=== PATIENT | male | born 1990 | race Caucasian/White ===

== ENCOUNTER 2023-10-18 12:51 | Outpatient (AMB) | payer OTHER, SELFPAY ==
--- NOTE | 2023-10-18 12:56 | AM.OFFWIN_ITS ---
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 Reports light sensitivity but denies double vision or eye pain. H/o allergic rhinitis. PFSH Social History Patient Tobacco Use Status: Never used Tobacco Review of Systems Eyes Reports photophobia Physical Exam Vital Signs: Last Vital Signs Temp 97.7 F 10/18/23 13:23 Pulse 103 H 10/18/23 13:23 BP 116/72 10/18/23 13:23 Pulse Ox 98 10/18/23 13:23 Oxygen Delivery Method Room Air 10/18/23 13:23 BMI result Body Mass Index 37.7 Const General: comfortable and no acute distress Nutritional Appearance: overweight Orientation/consciousness: patient oriented x3 HEENT Head: Yes normocephalic Ears: external ears normal General nose exam: Normal external nose present Eyes Eyelids: Yes eyelids normal Conjunctivae: conjunctival abnormal (Redness and cloudy both eyes) bilateral and diffuse Pupils: Equal, round and reactive pupils present EOM: EOMs intact bilaterally Direct Ophthalmoscopy: photophobia Neuro General: patient oriented x3, gait normal and moves all extremities Cranial nerves: Yes Equal, round and reactive pupils present Psych Speech and movement: Normal speech and movement present Assessment & Plan Assessment & Plan (1) Acute atopic conjunctivitis: Code(s): H10.10 - Acute atopic conjunctivitis, unspecified eye Qualifiers: Laterality: bilateral Qualified Code(s): H10.13 - Acute atopic conjunctivitis, bilateral Plan: - Maintain a Good eye hygiene - Use the drops as directed - Wash hands with soap and water - RTC if no improvement. Medications: New ciprofloxacin HCl 0.3% put 1-2 drps in affected eye(s) every 2hr up to 8 times/day x2days; then 4 times/day x5days ophthalmic (eye) 10 mL 0RF H10.13 - Acute atopic conjunctivitis, bilateral Coding Level of Care Code New Pt Level 3 (33605) Diagnoses Acute atopic conjunctivitis of both eyes H10.13 Laterality: bilateral Time Spent (min) 15
[2023-10-18 13:23] VITALS: BP 116/72; PULSE 103; TEMP 36.5; O2SAT 98; BMI 37.7
== END 2023-10-18 14:01 | disposition home or self-care (01) ==
PROVIDERS: Visit Provider Nurse Practitioner Family
DX: H10.13 Acute atopic conjunctivitis, bilateral (principal)
CPT/HCPCS: 99203

== ENCOUNTER 2024-08-05 10:53 | Emergency (ER) | payer OTHER, SELFPAY ==
--- NOTE | ~2024-08-05 | CT_ITS ---
EXAMINATION: CT HEAD WITHOUT IV CONTRAST HISTORY: new onset seizure. TECHNIQUE: Unenhanced helical CT of the head was performed per standard departmental protocol. Coronal and sagittal reformats of the head were also evaluated. One or more of the following techniques was used for dose reduction: Automated exposure control, adjustment of the mA and/or kV according to patient size, use of iterative reconstruction technique. DLP: 936 mGy-cm COMPARISON: There are no prior studies for comparison. FINDINGS: BRAIN: The brain parenchyma is unremarkable. There is normal martinez/white differentiation. The ventricular system is normal in size and configuration. There is no mass effect or midline shift. No intra- or extra-axial fluid collections are identified. SINUSES: The visualized paranasal sinuses are clear. The mastoid air cells and middle ear cavities are well pneumatized. ORBITS: The visualized orbits are unremarkable. BONES/SOFT TISSUES: There is left parietal soft tissue swelling. There are multiple calcified sebaceous cysts of the scalp. The calvarium is intact. No suspicious lytic or sclerotic lesions. CT/CT head/brain wo IV con IMPRESSION: Left parietal soft tissue swelling. Otherwise unremarkable unenhanced head CT. Electronically signed by: Davis Moreno MD 08/05/2024 02:[address] [facility]
--- NOTE | ~2024-08-05 | XR_ITS ---
EXAMINATION: XR SHOULDER 2 OR MORE VIEWS LEFT HISTORY: pain COMPARISON: There are no prior studies available for comparison. FINDINGS: Three views of the left shoulder are submitted. Osseous mineralization is normal. There is a moderately displaced oblique fracture of the distal clavicle. No additional fracture is seen. There is no dislocation. The glenohumeral and acromioclavicular joint spaces are preserved. The soft tissues are unremarkable. XR/XR shoulder LT min 2V IMPRESSION: Moderately displaced oblique fracture of the distal clavicle. Electronically signed by: Davis Moreno MD 08/05/2024 01:12 PM [facility]
--- NOTE | 2024-08-05 11:47 | ED_ITS ---
HPI - Fall General Chief Complaint: General Medical Stated Complaint: dislocated l shoulder Time Seen by Provider: 08/05/24 15:45 Source: patient Mode of arrival: ambulatory Limitations: no limitations History of Present Illness ED Provider: LOBITO SON PA-C HPI Narrative: 33 yo male presents to the ED from home following ?seizure this morning. He reports waking up and taking a phone call from an [employer] around 0850 this morning. The next thing he knew, he woke up in his recliner around 0955. He was alert when he came to. He immediately noted left shoulder pain. Denies tongue laceration or bladder incontinence. He believes he may have tripped and fell. He is unsure of head strike. He reports consuming 2-4 beers daily. Last drink was yesterday. No need for eye postbed stitcher. Denies history of etoh withdrawal or withdrawal seizures. Denies hx of seizures in general. Denies headache, numbness or weakness, vision change or dizziness. Denies feeling as though he is withdrawing from alcohol at this time. Denies any ilicit substance use. Related Data Previous Rx's ?Medication ?Instructions ?Recorded ciprofloxacin HCl 0.3 % eye drops See Rx Instructions ophthalmic 10/18/23 (eye) .COMPLEX #10 mL tramadol 50 mg tablet 50 mg PO Q8H PRN pain (scale score 08/05/24 4-6) #7 tabs Allergies Allergy/AdvReac Type Severity Reaction Status Date / Time Penicillins [PENICILLINS] Allergy Unknown HIVES Verified 08/05/24 11:51 pennicillin Allergy Unknown Unknown Uncoded 10/18/23 13:31 Review of Systems 2 Review of Systems: Constitutional: No fever, chills, fatigue, night sweats, weight changes ENT/Mouth: No ear pain, hearing loss, nasal congestion, sinus pain, rhinorrhea, sore throat Eyes: No eye pain, swelling, redness, vision changes, discharge Cardio: No chest pain, palpitations, ARRIETA, orthopnea, peripheral edema Pulm: No SOB, cough, sputum, wheezing, dyspnea, hemoptysis GI: No nausea, vomiting, hematemesis, abdominal pain, diarrhea, constipation, hematochezia, melena : No irregular bleeding, dysuria, frequency, urgency, hesitancy, hematuria, flank pain, urinary flow changes, urinary incontinence or retention MSK: No back pain, neck pain, joint pain, myalgias, +L shoulder pain Skin: No lesions, rashes Neuro: No weakness, numbness, paresthesias, LOC, dizziness, headache Psych: No anxiety/panic, depression, SI/HI, AH/VH All other systems reviewed and are negative. [facility] Past Medical History Attestation statement: The following information was validated with the patient. Source: old records reviewed and nursing notes reviewed Social History Social History Patient Tobacco Use Status: Never used Tobacco Advance Directives: No Advance Directives Information Provided: No Physical Exam 2 Vital Signs: Vital Signs: Last Vital Signs Temp 98 F 08/05/24 16:10 Pulse 102 H 08/05/24 16:10 Resp 20 08/05/24 16:10 BP 153/84 H 08/05/24 16:10 Pulse Ox 98 08/05/24 16:10 O2 Del Method Room Air 08/05/24 16:10 BMI result Body Mass Index 41.5 hypertensive, tachycardic General: Well appearing, in no acute distress. Skin: Warm, dry, intact. No rashes or lesions. Head: small palpable hematoma to left parietal region, no palpable skull fx. no battles sign. no raccoon eyes. EENT: PERRLA. EOM intact. Moist mucous membranes.?no tongue laceration Neck: no c spine tenderness or step off Cardiac: Chest wall symmetric. tachycardic, regular rhythm Lungs: Normal respiratory effort without accessory muscle use. CTA bilaterally Abdomen: Soft, non-tender, non-distended Back: No midline spinous or paraspinal tenderness. No step off deformity. Ext: ttp along anterior aspect of left shoulder extending over clavicle, no obvious palpable deformity or crepitus. FROM intact to left shoulder w/ pain on extension and abduction. holding LUE in adduction. 2+ radial/ulnar pulse intact. Neuro: AOx3. Normal speech. no tremor, no tongue fasciculation, no asterixis. Ambulating with steady gait. Psych: Appropriate mood and affect. Responds appropriately to questions. Course Course Course Narrative: 33 yo male no PMH not on thinners states he woke up today everything was fine states he was on the phone with [employer] and the next thing he knew he woke up in his recliner at 955am. He states he thinks he lost about 30 minutes of time. He knew where he was when he was at home. He has never had this happen before. He only has L shoulder pain. He drinks heavy but no need for eye postbed stitcher and no past withdrawal seizures. He denies headache, numbness or weakness. At this time unclear if he had a seizure given the lost track of time would not suspect syncope given he was sitting in the recliner when he woke up. Labs, EKG, L shoulder xray. this is a RAPID medical screening exam the rest of the history and physical exam is to be done by the main provider. Reevaluation(s) Reevaluation #1: CBC with leukocytosis to 12.9 with left shift. No anemia. H&H stable. Chemistry without acute electrolyte abnormality requiring intervention. No ASHLEE. Liver function elevated, likely secondary to ETOH abuse. Trop WNL. EKG showing sinus tachycardia at a rate of 116 beats per minute, no acute ischemic changes or ST elevations. ACS unlikely. Lipase WNL. Pancreatitis unlikely. ethanol undetectable. ua w/o infection. > shoulder x-ray showing moderately displaced oblique fracture of the distal clavicle. CT head/brain showing left parietal soft tissue swelling. No intracranial bleed or skull fracture. > discussed all results with patient. He has been placed in a sling for clavicle fracture. CMS intact distally. At this time it is unclear if he had a seizure versus syncopal episode given that he woke up in his recliner. He does not appear to be in alcohol withdrawal. He has no history of withdrawal seizures or DT. no hx of seizures. > he is well appearing. vitals have stablized. his father is at bedside with him and has no concerns. discussed seizure protocol. he will need to follow up with neurology - referral provided. he is not interested in detox at this time. advised to not make any drastic changes to his etoh consumption. advise to f/u w/ ortho for clavicle fx. Patient has remained stable throughout ED visit today. Discussed worrisome signs and symptoms and when to return to the ED. All questions answered at this time. Patient is agreeable with disposition and stable for discharge. Procedures Orthopedic Splinting/Casting Injury #1: Side: left Upper Extremity Injury Location: clavicle Upper Extremity Immobilizer: sling/shoulder immobilizer Medical Decision Making Medical Decision Making [facility] Narrative: 33 yo male presents to the ED from home following ?seizure this morning. exam significant for ttp along anterior aspect of left shoulder extending over clavicle, no obvious palpable deformity or crepitus. FROM intact to left shoulder w/ pain on extension and abduction. holding LUE in adduction. 2+ radial/ulnar pulse intact. small palpable hematoma to left parietal region, no palpable skull fx. no battles sign. no raccoon eyes. Differential diagnosis includes anemia, electrolyte abnormality, etoh abuse, etoh withdrawal seizure, seizure, scalp hematoma v skull fracture, intracranial bleed v mass, shoulder/clavicle fracture v disclocation, contusion, msk sprain/ strain Labs, imaging, ekg, UA obtained prior to my assumption of care. plan to review and re-evaluate. Differential Diagnosis Differential Diagnoses: The differential diagnosis associated with the presentation includes as above. Admission/Observation not indicated. Lab Data [facility] Lab Attestation statement: I reviewed the patient's lab results. as above. 08/05/24 13:41 08/05/24 13:41 Labs: Lab Results 08/05/24 08/05/24 Range/Units 13:41 15:43 WBC 12.9 H (4.8-10.8) X10*3/uL RBC 4.75 (4.60-5.80) X10*6/uL Hgb 15.8 (14.0-18.0) g/dl Hct 44.7 (42.0-52.0) % MCV 94.1 (80.0-98.0) fL MCH 33.3 H (27.0-33.0) pg MCHC 35.3 (31.0-36.0) g/dl RDW 12.3 (11.0-16.0) % Plt Count 223 (160-400) X10*3/uL MPV 9.1 L (9.4-12.4) fL Immature Gran % (Auto) 0.5 H (0.0-0.4) % Neut % (Auto) 81.9 H (45-73) % Lymph % (Auto) 10.5 L (20-40) % Kinney % (Auto) 6.2 (2-11) % Eos % (Auto) 0.5 (0-4) % Baso % (Auto) 0.4 (0-2) % Lymph # (Auto) 1.4 (1.2-4.9) X10*3/uL Kinney # (Auto) 0.8 (0.1-1.2) X10*3/uL Eos # (Auto) 0.1 (0.0-0.4) X10*3/uL Baso # (Auto) 0.1 (0.0-0.2) X10*3/uL Abs Immat Gran (auto) 0.07 H (0.00-0.03) X10*3/uL Absolute Neuts (auto) 10.5 H (2.0-8.3) x10*3/uL Absolute Nucleated RBC 0.000 (0.0-0.012) X10*3/uL Nucleated RBC % (auto) 0.0 (0.0-0.2) /100WBC Sodium 142 (135-145) mmol/L Potassium 4.8 (3.3-5.1) mmol/L Chloride 109 H (96-108) mmol/L Carbon Dioxide 25 (22-29) mmol/L Anion Gap 13 (12-20) BUN 8 L (9-16) mg/dL Creatinine 0.89 (0.5-1.4) mg/dL Estim Creat Clear Calc 162.4 Estimated GFR > 60 Random Glucose 121 H (60-115) mg/dL Calcium 10.0 (8.4-10.2) mg/dL Magnesium 2.2 (1.6-2.6) mg/dL Total Bilirubin 0.6 (0.0-1.0) mg/dL Direct Bilirubin 0.3 (0.0-0.5) mg/dL AST 74 H (5-37) U/L ALT 158 H (0-40) U/L Alkaline Phosphatase 84 (39-117) U/L Troponin I High Sens 8.4 (<3.5-35.0) ng/L Total Protein 8.4 H (6.5-8.0) g/dL Albumin 4.3 (3.5-5.0) g/dL Lipase 25 (8-78) U/L Urine Color Yellow Urine Appearance Cloudy Urine pH 6.0 (5.0-9.0) Ur Specific Odd 1.015 (1.005-1.025) Urine Protein Negative (Neg-Trace) mg/dL Urine Glucose (UA) Negative (Negative) mg/dL Urine Ketones Negative (Negative) mg/dL Urine Blood Negative (Negative) Urine Nitrite Negative (Negative) Ur Leukocyte Esterase Negative (Negative) Ethyl Alcohol < 10 mg/dL Independent Interpretation I performed an independent interpretation of an: EKG, Plain X-Ray and CT Scan Interpretation: CT head w/o intracranial bleed XR left shoulder w/ distal clavicle fracture EKG showing sinus tachycardia at a rate of 116 beats per minute, no ST elevation or acute ischemic changes Radiology Impression Discussion of test interpretation with radiology: I have reviewed the radiologist's reading. Radiologist Impression: Procedure(s): CT head/brain wo IV con Accession Number(s): [id number] cc: Jody Landa DO; Physician,None ~ Report Number: [id number]: Total DLP = 936.00 mGy-cm EXAMINATION: CT HEAD WITHOUT IV CONTRAST HISTORY: new onset seizure. TECHNIQUE: Unenhanced helical CT of the head was performed per standard departmental protocol. Coronal and sagittal reformats of the head were also evaluated. One or more of the following techniques was used for dose reduction: Automated exposure control, adjustment of the mA and/or kV according to patient size, use of iterative reconstruction technique. DLP: 936 mGy-cm COMPARISON: There are no prior studies for comparison. FINDINGS: BRAIN: The brain parenchyma is unremarkable. There is normal martinez/white differentiation. The ventricular system is normal in size and configuration. There is no mass effect or midline shift. No intra- or extra-axial fluid collections are identified. SINUSES: The visualized paranasal sinuses are clear. The mastoid air cells and middle ear cavities are well pneumatized. ORBITS: The visualized orbits are unremarkable. BONES/SOFT TISSUES: There is left parietal soft tissue swelling. There are multiple calcified sebaceous cysts of the scalp. The calvarium is intact. No suspicious lytic or sclerotic lesions. CT/CT head/brain wo IV con IMPRESSION: Left parietal soft tissue swelling. Otherwise unremarkable unenhanced head CT. Electronically signed by: Davis Moreno MD 08/05/2024 02:36 PM EST RP Procedure(s): XR shoulder LT min 2V Accession Number(s): [id number] cc: Jody Landa DO; Physician,None ~ EXAMINATION: XR SHOULDER 2 OR MORE VIEWS LEFT HISTORY: pain COMPARISON: There are no prior studies available for comparison. FINDINGS: Three views of the left shoulder are submitted. Osseous mineralization is normal. There is a moderately displaced oblique fracture of the distal clavicle. No additional fracture is seen. There is no dislocation. The glenohumeral and acromioclavicular joint spaces are preserved. The soft tissues are unremarkable. XR/XR shoulder LT min 2V IMPRESSION: Moderately displaced oblique fracture of the distal clavicle. Electronically signed by: Davis Moreno MD 08/05/2024 01:12 PM EST RP External Record Review External record reviewed: Inpatient record Prescription Management I considered prescription management with: Pain Medication Chronic Conditions Patient?s care impacted by: Other (etoh abuse) Social Determinants Patient?s care significantly limited by Social Determinants of Health including: Alcoholism and drug addiction in family and Other Social Determinant of Health Critical Care Time Critical Care Time Critical Care Time: No Discharge Plan Discharge Clinical Impression: Clavicle fracture, Syncope Patient Disposition: Home, Self-Care Instructions: Clavicle Fracture (ED), Syncope (ED), Epilepsy (ED), Alcohol Withdrawal (ED) Additional Instructions: You were evaluated in the ED today following a syncopal episode. Your blood work/ ekg are reassuring. The CT scan of your head shows soft tissue swelling, no intracranial bleed or skull fracture. The xray of your left shoulder shows a fracture of your clavicle. I have placed you in a sling today. You need to keep this on until you follow up with your orthopedic doctor outpatient. You have been provided with a referral. Call them to establish care. They will not call you. I recommend you take 600mg ibuprofen every 6 hours or Tylenol 650mg every 6 hours as needed for pain. If needed, you can alternate these medications so that you take one medication every 3 hours. For example, at noon take ibuprofen, then at 3pm take Tylenol, then at 6pm take ibuprofen. I am sending tramadol for you to take for break through pain. Take this with caution as this is a controlled pain medication. It has addictive properties. Do not drink, drive or operate heavy machinery while taking this medication. You also need to follow up with neurologist. As we cannot definitively say you did or did not have a seizure today, the recommendation is to avoid driving for at least 6 months. You need to follow up with neurologist for further work up/ testing. Return with new or worsening symptoms. In the case of an emergency call 911. If you would like to cut down or stop your alcohol use please consider calling our outpatient Addiction Treatment office:? [facility] (M-F 9a-5p) [address] [place] [address] [address] ? If you experience seizures, vomiting blood, black stools, falls, severe headache, chest pain, fevers, trouble breathing, hallucinations or any other concerns you need to call 911 or seek immediate care. Please stay hydrated. Prescriptions: New tramadol 50 mg tablet 50 mg PO Q8H PRN (Reason: pain (scale score 4-6)) Qty: 7 0RF No Action ciprofloxacin HCl 0.3 % drops See Rx Instructions ophthalmic (eye) .COMPLEX Qty: 10 0RF Rx Instructions: put 1-2 drps in affected eye(s) every 2hr up to 8 times/day x2days; then 4 times/day x5days ophthalmic (eye) Referrals: [facility] Orthopedic Surgeons [Provider Group] - 3 days (left clavicle fracture) [facility] Neuro/Sleep [Provider Group] - 2 days (new onset seizure work up) Stand Alone Forms: Work/School Release Interventions: ED Discharge Assessment Last Done: 08/05/24 16:10 Discharge Date/Time: 08/05/24 16:11 Print Language: Burkinan
[2024-08-05 11:48] VITALS: BP 133/85; PULSE 120; RESP 16; TEMP 36.6; O2SAT 96; BMI 41.5
--- NOTE | 2024-08-05 11:52 | ECG_ITS ---
Test Reason : SYNCOPE Blood Pressure : */* mmHG Vent. Rate : 116 BPM Atrial Rate : 116 BPM P-R Int : 190 ms QRS Dur : 68 ms QT Int : 316 ms P-R-T Axes : 29 -17 -11 degrees QTcB Int : 439 ms Sinus tachycardia Right atrial enlargement Junctional ST depression, probably normal Borderline ECG No previous ECGs available Referred By: Jody Landa Electronically Signed By:
[2024-08-05 13:46] LABS: MANUAL DIFF FLAG NO
[2024-08-05 13:47] LABS: Basophils Absolute Auto 0.1 X10*3/uL (0.0-0.2); Basophils Percent Auto 0.4 % (0-2); Eosinophils Absolute Auto 0.1 X10*3/uL (0.0-0.4); Eosinophils Percent Auto 0.5 % (0-4); Hematocrit 44.7 % (42.0-52.0); Hemoglobin 15.8 g/dl (14.0-18.0); Imm Gran Abs Auto 0.07 X10*3/uL (0.00-0.03); Imm Gran Pct Auto 0.5 % (0.0-0.4); Lymphocytes Absolute Auto 1.4 X10*3/uL (1.2-4.9); Lymphocytes Percent Auto 10.5 % (20-40); Mean Corpuscular HGB Conc 35.3 g/dl (31.0-36.0); Mean Corpuscular Hemoglobin 33.3 pg (27.0-33.0); Mean Corpuscular Volume 94.1 fL (80.0-98.0); Mean Platelet Volume 9.1 fL (9.4-12.4); Monocytes Absolute Auto 0.8 X10*3/uL (0.1-1.2); Monocytes Percent Auto 6.2 % (2-11); Neutrophils Absolute Auto 10.5 x10*3/uL (2.0-8.3); Neutrophils Percent Auto 81.9 % (45-73); Platelet Count 223 X10*3/uL (160-400); Red Blood Count 4.75 X10*6/uL (4.60-5.80); Red Cell Distribution Width 12.3 % (11.0-16.0); White Blood Count 12.9 X10*3/uL (4.8-10.8)
[2024-08-05 14:05] LABS: Alanine Aminotransferase 158 U/L (0-40); Albumin Level 4.3 g/dL (3.5-5.0); Alkaline Phosphatase 84 U/L (39-117); Anion Gap 13 (12-20); Aspartate Amino Transferase 74 U/L (5-37); Bilirubin Direct 0.3 mg/dL (0.0-0.5); Bilirubin Total 0.6 mg/dL (0.0-1.0); Blood Urea Nitrogen 8 mg/dL (9-16); Carbon Dioxide 25 mmol/L (22-29); Chloride 109 mmol/L (96-108); Creatinine Clr Calc Pharmacy 162.4; Estimated Glomerular Filt Rate > 60; Ethanol < 10 mg/dL; Glucose Random 121 mg/dL (60-115); Lipase 25 U/L (8-78); Magnesium 2.2 mg/dL (1.6-2.6); Potassium 4.8 mmol/L (3.3-5.1); Sodium 142 mmol/L (135-145); Total Protein 8.4 g/dL (6.5-8.0)
[2024-08-05 14:08] LABS: Troponin-I High Sensitivity 8.4 ng/L (<3.5-35.0)
[2024-08-05 15:47] VITALS: BP 153/84; PULSE 102; RESP 20; TEMP 36.6; O2SAT 98
[2024-08-05 16:02] LABS: Appearance Urine Cloudy; Color Urine Yellow; Glucose Urine UA Negative (Negative); Leukocyte Esterase Urine Negative (Negative); Nitrite Urine Negative (Negative); Specific Gravity - Urine 1.015 (1.005-1.025); Urine Blood Negative (Negative); Urine Ketones Negative (Negative); Urine Protein Negative (Neg-Trace)
[2024-08-05 16:10] VITALS: BP 153/84; PULSE 102; RESP 20; TEMP 36.6; O2SAT 98
--- OUTSIDE RECORDS SUMMARY | 2024-08-05 18:09 | XMS_ITS | Encounter Summary ---
Author Organization [facility] Address [address] [place] [address] Phone Care Team Providers Care Tile Setter Supervisor Name Role Phone Sirena Gee MD Primary Care Provider [phone] Encounter Details Date Type Department Care Team (Late st Contact Info) Description 01/26/2017 Conversion Encounter [facility] [address] [place] [address] Social History Tobacco Use Types Packs/Day Years Used Date Smoking Tobacco: Never Assessed Sex and Gender Information Value Date Recorded Sex Assigned at Not on file Legal Sex Male 4:36 PM EDT Gender Identity Not on file Sexual Orientation Not on file documented as of this encounter Plan of Treatment Not on file documented as of this encounter Visit Diagnoses Not on filedocumented in this encounter Care Teams Tile Setter Supervisor Relationship Specialty Start Date End Date Sirena Gee MD [address] [place] [address] PCP - General 01/20/17 documented as of this encounter
--- OUTSIDE RECORDS SUMMARY | 2024-08-05 18:09 | XMS_ITS | Encounter Summary ---
Author Organization [facility] Address [address] [place] [phone] Phone Care Team Providers Care Clerical Office Worker Name Role Phone Sirena Gee MD Primary Care Provider [phone] Encounter Details Date Type Department Care Team (Late st Contact Info) Description 02/24/2011 Documentation EM Family Medicine [address] [place] [address] Family Medicine, Physician [address] [place], [place] [id number] Social History Tobacco Use Types Packs/Day Years [...] on filedocumented in this encounter Care Teams Clerical Office Worker Relationship Specialty Start Date End Date Sirena Gee MD [address] [place] [address] [place] [address] PCP - General 01/20/17 documented as of this encounter
--- OUTSIDE RECORDS SUMMARY | 2024-08-05 18:09 | XMS_ITS | Clinical Summary ---
Author Organization [facility] Address [address] [place] [address] Phone Care Team Providers Care Head Of Data Name Role Phone Sirena Gee MD Primary Care Provider [phone] Immunizations Immunization Administration Dates Next Due DTP 12/10/1993, 0,05/26/1989,03/22,01/18/1989 Hep B, ped/adol 10/04/2000,05/22/2000,03/29/2000 Hib (PRP-T) 03/05/1990 Influenza, injectable, trivalent 02/17/2009 Influenza, intranasal, trivalent 02/17/2010 MMR 09/20/1994,03/05/1990 Meningococcal Conj (Menactra) MCV4P 12/14/2005 OPV 12/10/1993, 0,03/22/1989,01/18 Td (adult) (MBL), 2 Lf tetan us toxoid, PF, adsorbed 10/31/2000 Tdap 12/24/2007 Varicella 12/24/2007,11/07/1995 Family History Relation Name Status Comments Father Alive Father: Alive a nd well Maternal Grandfather Materna l grandfather: cardiac/throat ca, Mother Alive Mother: Alive a nd well Paternal Grandfather Paterna l grandfather: Cancer, lung, Paternal Grandmother Paterna l grandmother: , heart Social History Tobacco Use Types Packs/Day Years Used Date Smoking Tobacco: Never Assessed Sex and Gender Information Value Date Recorded Sex Assigned at Not on file Legal Sex Male 4:36 PM EDT Gender Identity Not on file Sexual Orientation Not on file Last Filed Vital Signs Vital Sign Reading Time Taken Comments Blood Pressure 122/78 02/17/2010 12:00 AM EDT Pulse 88 05/04/2010 12:00 AM EST Temperature 36.7 ??C (98 ??F) 07/27/2010 12:00 AM EST Respiratory Rate - - Oxygen Saturation - - Inhaled Oxygen Concentration - - Weight 108 kg (239 lb) 07/27/2010 12:00 AM EST Height 176.5 cm (5' 9.5 ) 02/17/2010 12:00 AM ED T Body Mass Index 34.79 02/17/2010 12:00 AM EDT Plan of Treatment Health Maintenance Due Date Last Done Comments Consider Men B Vaccine (1 of 2 - Bexsero 2-dose series) 2004 DTaP,Tdap,and Td Vaccines (7 - Td or Tdap) 12/23/2017 12/24/2007, 10/31/2000, 12/10/1993, Additional history exists Influenza Vaccines (#1) 2024 02/17/2010, 02/17 COVID-19 Vaccine ( season) 2024 HIB Vaccines Completed 03/05/1990 IPV Vaccines Completed 12/10/1993, 04/13, 03/22/1989, Additional history exists MMR Vaccines Completed 09/20/1994, 03/05/1990 Hepatitis B Vaccines Completed 10/04/2000, 05/22/2000, 03/29/2000 Meningococcal Vaccine Completed 12/14/2005 Varicella Vaccines Completed 12/24/2007, 11/07/1995 HPV Vaccines Aged Out No longer eligi ble based on patient's age to complete this topic Hepatitis A Vaccines Aged Out No long er eligible based on patient's age to complete this topic Men B Vaccine Aged Out No longer elig ible based on patient's age to complete this topic Pneumococcal Vaccine Aged Out No long er eligible based on patient's age to complete this topic Care Teams Head Of Data Relationship Specialty Start Date End Date Sirena Gee MD [address] [place] [address] [place] [id number] PCP - General 01/20/17
--- OUTSIDE RECORDS SUMMARY | 2024-08-05 18:09 | XMS_ITS | Encounter Summary ---
Author Organization [facility] Address [address] [place] [id number] Phone Care Team Providers Care Gantry Rigger Name Role Phone Sirena Gee MD Primary Care Provider [phone] Encounter Details Date Type Department Care Team (Late st Contact Info) Description 07/27/2010 Documentation EM Family Medicine [address] [place] [address] Family Medicine, Physician [address] [place], [place] [id number] Social History Tobacco Use Types Packs/Day Years [...] on filedocumented in this encounter Care Teams Gantry Rigger Relationship Specialty Start Date End Date Sirena Gee MD [address] [place] [address] [place] [id number] PCP - General 01/20/17 documented as of this encounter
== END 2024-08-05 16:11 | disposition home or self-care (01) ==
PROVIDERS: Emergency Medicine; Emergency Provider Emergency Medicine
DX: S42.002A Fracture of unspecified part of left clavicle, initial encounter for closed fracture (principal); R56.9 Unspecified convulsions; R51.9 Headache, unspecified; R00.0 Tachycardia, unspecified; M25.512 Pain in left shoulder; W19.XXXA Unspecified fall, initial encounter; Y93.9 Activity, unspecified; Y92.9 Unspecified place or not applicable; Y99.8 Other external cause status; Z79.899 Other long term (current) drug therapy; Z51.81 Encounter for therapeutic drug level monitoring
CPT/HCPCS: 29105; 36415; 70450; 73030; 80048; 80076; 80307; 81003; 83690; 83735; 84484; 85025; 93005; 99283; 99284

== ENCOUNTER → 2024-08-05 11:29 | Outpatient (BNV) | payer OTHER, SELFPAY | PROVIDERS: Visit Provider Radiology Diagnostic Radiology | DX: R55 Syncope and collapse (principal); M25.512 Pain in left shoulder | CPT/HCPCS: 70450; 73030 ==